=== PATIENT | male | born 1990 | race Caucasian/White ===

== ENCOUNTER 2016-12-25 13:07 | Emergency (ER) | payer OTHER ==
[~2016-12-25] VITALS: Ht 170.2 cm; Wt 105.0 kg
[2016-12-25 13:10] VITALS: BP 126/80; PULSE 78; RESP 20; TEMP 98.9; O2SAT 99
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
--- NOTE | 2016-12-25 17:19 | PD ---
Physical Exam Narrative Patient was seen by the ED physician and signed out to me. Data Data Last Documented VS Vital Signs Date Time Temp Pulse Resp B/P Pulse Ox O2 Delivery O2 Flow Rate FiO2 12/25/16 13:10 98.9 78 20 126/[address] Brain W/O Iv Contrast(Rout) (12/25/16 15:49) MDM Supervised Visit with DELMER: No Interpretation(s) Last Impressions Head CT 12/25/16 1549 Signed Impressions: Service Date/Time: Sunday, December 25, 2016 16:45 - CONCLUSION: No acute disease. Winston Lew MD Diagnosis Primary Impression: Concussion Qualified Code: S06.0X0A - Concussion, without LOC, initial encounter Patient Instructions: General Instructions, Concussion (DC) Additional Instruction: Head trauma instructions given. Tylenol for headache. Follow-up with personal physician. Return as needed. Follow-up with neurologist if persistent problem. Scripts No Active Prescriptions or Reported Meds Disposition: 01 DISCHARGE HOME Condition: Stable Omari Cruz MD Dec 25, 2016 17:19
== END 2016-12-25 17:35 | disposition home or self-care (01) ==
LOC: NEPD 13:07
DX: S06.0X0A Concussion without loss of consciousness, initial encounter (principal); R11.0 Nausea; R42 Dizziness and giddiness; R55 Syncope and collapse; V49.9XXA Car occupant (driver) (passenger) injured in unspecified traffic accident, initial encounter
CPT/HCPCS: 70450